=== PATIENT | male | born 1985 | race Caucasian/White ===

== ENCOUNTER 2017-11-01 08:34 | Outpatient (CLI) | payer BC ==
--- NOTE | 2017-11-01 10:14 | Ultrasound Report ---
Procedure Date: 11/01/2017 Accession Number: [id number] / [id number] Procedure: US - Abdomen Limited CPT Code: FULL RESULT: EXAM: ABDOMEN ULTRASOUND LIMITED, RUQ EXAM DATE: 11/01/2017 09:16 AM. CLINICAL HISTORY: RUQ PAIN. COMPARISON: None. TECHNIQUE: Real-time scanning was performed with static images obtained. FINDINGS: Liver: Diffusely echogenic 16.8 cm. Main portal vein flow: Hepatopetal. Gallbladder: No stones, wall thickening, or sonographic Parham's sign. Biliary System: CBD measures 3.4 mm. No intrahepatic or extrahepatic ductal dilatation. Other: Right kidney measures 12.4 cm without hydronephrosis. IMPRESSION: Diffuse hepatic steatosis. RADIA
== END 2017-11-01 08:35 | disposition home or self-care (01) ==
LOC: DI 08:34
PROVIDERS: ATTEND Nurse Practitioner Family
DX: R10.11 Right upper quadrant pain (principal); K76.0 Fatty (change of) liver, not elsewhere classified
CPT/HCPCS: 76705

== ENCOUNTER 2018-03-16 09:39 | Emergency (ER) | payer BC ==
[2018-03-16 09:47] VITALS: BP 128/67
[2018-03-16] MEDS ORDERED: IPRATROPIUM/ALBUTEROL 3 ML NEB INH STA (09:55)
--- NOTE | 2018-03-16 10:15 | XRAY Report ---
Reason: cough exposed to pna Procedure Date: 03/16/2018 Accession Number: [id number] / [id number] Procedure: XR - Chest 2 View X-Ray CPT Code: 94413 FULL RESULT: EXAM: CHEST RADIOGRAPHY EXAM DATE: 03/16/2018 10:03 AM. CLINICAL HISTORY: Cough, exposed to pneumonia. COMPARISON: None. TECHNIQUE: 2 views. FINDINGS: Lungs/Pleura: No focal opacities evident. No pleural effusion. No pneumothorax. Normal volumes. Mediastinum: Heart and mediastinal contours are unremarkable. Other: None. IMPRESSION: No acute cardiopulmonary abnormality. RADIA
--- NOTE | 2018-03-16 11:05 | ED Physician Documentation ---
History of Present Illness - Stated complaint Stated Complaint: FEVER - Chief complaint Chief Complaint: Fever - Additonal information Additional information: hx from pt healthy 32 y/o male sick for 5 days fever myalgias cough nausea son and father with same getting better no travel Review of Systems Constitutional: reports: Fever, Chills, Myalgias, Fatigue Nose: reports: Congestion Respiratory: reports: Cough GI: reports: Nausea Neurologic: reports: Generalized weakness Immunocompromised: denies: Immunocompromised PD PAST MEDICAL HISTORY - Past Medical History Past Medical History: No - Past Surgical History Past Surgical History: No - Present Medications Home Medications: Ambulatory Orders Medication Instructions Recorded Confirmed Benzonatate [Tessalon Perle] 100 mg PO TID PRN #20 capsule 03/16/18 Fluticasone [Flonase] 1 sprays ANGELA BID PRN #1 bottle 03/16/18 Ondansetron Odt [Zofran] 4 mg TL Q6H PRN #10 tablet 03/16/18 guaiFENesin/DEXTROMETHORPHAN 10 ml PO Q6H PRN #120 ml 03/16/18 [Robitussin Dm] - Allergies Allergies/Adverse Reactions: Allergies Allergy/AdvReac Type Severity Reaction Status Date / Time Sulfa (Sulfonamide Allergy Unknown Verified 03/16/18 09:47 Antibiotics) - Social History Does the pt smoke?: No Smoking Status: Never smoker PD ED PE NORMAL - Vitals Vital signs reviewed: Yes - General General: Alert and oriented X 3 - HEENT HEENT: Moist mucous membranes. No: Ears normal (dull no erythema), Pharynx benign (erythema from cough no exudate) - Neck Neck: Supple, no meningeal sign - Cardiac Cardiac: RRR - Respiratory Respiratory: No respiratory distress, Clear bilaterally - Derm Derm: Normal color - Neuro Neuro: Alert and oriented X 3 Results - Vitals Vitals: Vital Signs - 24 hr 03/16/18 03/16/18 09:44 10:07 Temperature 35.6 C L Heart Rate 103 H 114 H Respiratory 16 18 Rate Blood Pressure 128/67 O2 Saturation 95 Oxygen O2 Source Room air - Labs Labs: Laboratory Tests 03/16/18 09:50 Influenza A (Rapid) POSITIVE H Influenza B (Rapid) Negative Departure - Departure Disposition: Home, Self Care Clinical Impression: Influenza Condition: Good Instructions: ED Flu Prescriptions: Benzonatate [Tessalon Perle] 100 mg PO TID PRN #20 capsule PRN Reason: Cough Fluticasone [Flonase] 1 sprays ANGELA BID PRN #1 bottle PRN Reason: congestion guaiFENesin/DEXTROMETHORPHAN [Robitussin Dm] 10 ml PO Q6H PRN #120 ml PRN Reason: Cough Ondansetron Odt [Zofran] 4 mg TL Q6H PRN #10 tablet PRN Reason: Nausea / Vomiting Comments: You have influenza A As we discussed, the tamiflu is unlikely to benefit you since you are otherwise healthy and have been sick for 5 days already. But I have prescribed medication to ease your symptoms And a note for work so you can stay home and rest Forms: Activity restrictions
== END 2018-03-16 11:19 | disposition home or self-care (01) ==
LOC: ED 09:39
DX: J10.1 Influenza due to other identified influenza virus with other respiratory manifestations (principal)
CPT/HCPCS: 71046; 87275; 87276; 94640; 99283